=== PATIENT | female | born 2005 | race Caucasian/White ===

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

== ENCOUNTER → 2024-04-30 13:30 | Outpatient (BNVA) | payer MEDICAID, SELFPAY ==
[2021-08-31 12:02] VITALS: BP 103/46; BMI 34.1
== END ==
DX: R22.41 Localized swelling, mass and lump, right lower limb (principal)
CPT/HCPCS: 73630

== ENCOUNTER → 2024-05-15 12:13 | Outpatient (BNVA) | payer MEDICAID, SELFPAY ==
[2021-08-31 12:02] VITALS: BP 103/46; BMI 34.1
== END ==
PROVIDERS: Visit Provider Podiatrist Foot & Ankle Surgery
DX: R22.41 Localized swelling, mass and lump, right lower limb (principal); M79.89 Other specified soft tissue disorders; M79.672 Pain in left foot; M21.611 Bunion of right foot
CPT/HCPCS: 73630

== ENCOUNTER 2024-06-05 14:20 | Outpatient (CLI) | payer MEDICAID, SELFPAY ==
[2021-08-31 12:02] VITALS: BP 103/46; BMI 34.1
--- NOTE | 2024-06-05 14:30 | MRR_ITS ---
PROCEDURE INFORMATION: Exam: MR Right Lower Extremity Other Than Joint Without Contrast; Foot Exam date and time: 06/05/2024 2:38 PM Age: 18 years old Clinical indication: Patient HX: Palpable mass on dorsal aspect of mid foot marked on image HX of navicular fracture; Additional info: Mass of mid right foot TECHNIQUE: Imaging protocol: Magnetic resonance imaging of the right lower extremity without contrast. Exam focused on the foot. COMPARISON: CR XR foot RT min 3V* [id number] 05/15/2024 12:19 PM FINDINGS: Bones/joints: Oil bead is seen at the dorsal aspect of the base of the 1st metatarsal bone with underlying edema surrounding the extensor hallucis longus. No collections are seen. No masses. LIGAMENTS: Lisfranc ligament: Unremarkable. No evidence of tear. TENDONS: Flexor tendons of foot: Unremarkable. No evidence of tear. Tibialis posterior tendon: Unremarkable as visualized. Peroneal tendons: Unremarkable as visualized. Extensor tendons of foot: No evidence of tear. Tibialis anterior tendon: Unremarkable as visualized. Tarsal canal (Sinus tarsi): Unremarkable. Tarsal tunnel: Unremarkable. Soft tissues: Unremarkable. Plantar fascia: Unremarkable as visualized. MR/MR foot RT wo con* [id number] IMPRESSION: 1. Edema surrounding the extensor hallucis longus at the level of the oil bead, consistent with focal tenosynovitis. 2. No changes of acute navicular stress fracture.
== END 2024-06-05 14:21 | disposition home or self-care (01) ==
LOC: RAD 14:21
PROVIDERS: Visit Provider Podiatrist Foot & Ankle Surgery
DX: M79.89 Other specified soft tissue disorders (principal); R22.41 Localized swelling, mass and lump, right lower limb
CPT/HCPCS: 73718

== ENCOUNTER → 2024-10-30 14:54 | Outpatient (BNVA) | payer MEDICAID, SELFPAY ==
[2021-08-31 12:02] VITALS: BP 103/46; BMI 34.1
== END ==
PROVIDERS: PCP Family Medicine; Visit Provider Family Medicine
DX: N89.8 Other specified noninflammatory disorders of vagina (principal); N92.6 Irregular menstruation, unspecified; R30.0 Dysuria
CPT/HCPCS: 81000; 81025; 81513; 87481; 87491; 87591; 87661

== ENCOUNTER → 2025-02-26 15:01 | Outpatient (BNVA) | payer MEDICAID, SELFPAY ==
[2021-08-31 12:02] VITALS: BP 103/46; BMI 34.1
== END ==
PROVIDERS: PCP Family Medicine; Visit Provider Family Medicine
DX: N92.0 Excessive and frequent menstruation with regular cycle (principal)
CPT/HCPCS: 81025

== ENCOUNTER → 2025-03-25 13:18 | Outpatient (BNVA) | payer MEDICAID, SELFPAY ==
[2021-08-31 12:02] VITALS: BP 103/46; BMI 34.1
== END ==
PROVIDERS: PCP Family Medicine; Visit Provider Family Medicine
DX: N91.2 Amenorrhea, unspecified (principal)
CPT/HCPCS: 81025